=== PATIENT | male | born 1970 | race Caucasian/White ===

== ENCOUNTER 2017-01-10 13:24 | Outpatient (CLI) | payer MEDICARE, OTHER | END 2017-01-10 13:25 | disposition home or self-care (01) | DX: G47.33 Obstructive sleep apnea (adult) (pediatric) (principal) | CPT/HCPCS: 99214; G0463 ==

== ENCOUNTER 2017-08-09 11:12 | Outpatient (CLI) | payer MEDICARE, OTHER | END 2017-08-09 11:13 | disposition home or self-care (01) | LOC: SC 11:12 | PROVIDERS: ATTEND Nurse Practitioner Family | DX: G47.33 Obstructive sleep apnea (adult) (pediatric) (principal) | CPT/HCPCS: 99214; G0463; 99212 ==

== ENCOUNTER 2018-03-13 15:28 | Outpatient (CLI) | payer MEDICARE, OTHER | END 2018-03-13 15:29 | disposition home or self-care (01) | LOC: SC 15:28 | PROVIDERS: ATTEND Nurse Practitioner Family | DX: G47.33 Obstructive sleep apnea (adult) (pediatric) (principal) | CPT/HCPCS: 99214; G0463; 99212 ==

== ENCOUNTER 2018-06-15 13:41 | Outpatient (CLI) | payer MEDICARE, OTHER | END 2018-06-15 13:42 | disposition home or self-care (01) | LOC: SC 13:41 | PROVIDERS: ATTEND Nurse Practitioner Family | DX: G47.33 Obstructive sleep apnea (adult) (pediatric) (principal) | CPT/HCPCS: 99214; G0463; 99212 ==

== ENCOUNTER 2019-07-10 12:49 | Outpatient (CLI) | payer MEDICARE, OTHER ==
[2019-07-10 13:59] VITALS: BP 106/70
--- NOTE | 2019-07-10 13:59 | SLEEP CARE CONSULTATION ---
Information from patient questionnaire entered by Sasha Sahu. I have reviewed and concur with the information entered by Sasha Sahu. This document represents the service I personally performed and the decisions made by me, Mayte Esqueda, RN, MSN, [employer]. History of Present Illness Previous diagnosis: Mild, Obstructive Sleep Apnea-Hypopnea Syndrome AHI: 10.0 Reason for CPAP/BiPAP follow up: annual Equipment type: CPAP Equipment obtained from: [employer] Mask style: Nasal pillows Mask brand: Respironics Backup mask available: Yes Last cushion change: a week ago HPI additional information: He did not receive the 6 month follow up letter and realized it had been a while and contacted office for follow up. Continues to struggle with constant pain from his fibromyalgia which affects ablitly to get to sleep. He will sometimes not use CPAP until very sleepy after in bed so average use is about 4 - 6 hours with CPAP. His tossing and turning causes the mask seal to break. He has tried several masks and the Nuance nasal pillows fits the best. CPAP Compliance Data - Data Reviewed with Patient Average duration of nightly device use: 4.2 Compliance rate %: 52.8 (180 days) Current pressure setting (cmH2O): 8.5 Humidity settin Average residual AHI: 2.7 Subjective Missed days of use due to: reports: illness Patient concerns: reports: mask leak noise ( only if tossing and turning in sleep with CPAP. ), condensation in mask/hose (rare and adjusts humidity ), nasal congestion (from recent cold reduced use of CPAP.). denies: aerophagia, mask discomfort, air blowing in eyes, dry mouth, nose, throat, epistaxis Observed to snore while using device: No Current pressure setting perceived as: comfortable On therapy, patient: reports: sleeping better, being more awake and alert during the day, more rested overall (but residual fatigue from pain ). denies: awakening more refreshed, drowsiness while driving Initial [place] Sleepiness Scale score: 13 Current [place] Sleepiness Scale score: 10 Allergies and Home Medications Known drug allergies: Yes (synthroid , darvocet, codienes ) Allergy and home medication list: Ibuprofen 800mg tab one up to three times a day as needed - 3-4 times a week Omeprazole 20mg tab one up to three times a day as needed C-T4 140mcg/T(3) 27mcg daily Review of Systems Review of systems same as previous: No (except recent cold ) Physical Exam Blood Pressure: 106/70 Cuff size: long Heart Rate: 71 O2 Saturation: 98 Height: 6 ft 3 in Weight: 255 lb 12.8 oz (new anti inflamatory diet ) Weight change since last visit: lost 10 pounds Body Mass Index: 31.9 BMI Classification: Obesity Class 1 Impression and Plan 1. Obstructive Sleep Apnea-Hypopnea Syndrome, mild, with fair treatment compliance and good apnea control. On CPAP therapy, the patient has better sleep quality and is more rested overall but has residual fatigue. Patient feels his fatigue is from chronic pain from fibromyalgia that is managed by his tail board man. He feels he is actually sleeping longer this past year with CPAP except past month when ill with a cold. His compliance is the best it has been in years. Usual is 40% range and this past 6 months he has increased it to 52%. His chronic pain affects his use of CPAP. He will start sleep with CPAP until his tossing and turning is too much. Then he resumes CPAP when he feels he has settled down. He is encouraged to strive for a minimum of 6 hours of sleep for overall health and to reduce fatigue from insufficient sleep. Better sleep can also improve pain but this has been hard for patient to achieve consistently. He can try going to sleep about 10 minutes earlier a night to see if he can get more overall sleep over time. Mask style is the best tried so far. For nasal congestion, he was given a sample of saline nasal spray to use prior to CPAP. He is to set it by the CPAP if possible as a reminder. He can also increase the humidity setting to reduce nasal congestion. He already has a steamy shower before bed that can facilitate nasal drainage. The shower can also assist transition to sleep. Patient has lost 10 pounds with new diet plan from tail board man. He is hoping to lose about 15 more pounds. Current BMI is 31.8, class 1 obesity. As he loses weight his apnea risk and CPAP pressure may also reduce. Thus he was advised of symptoms to report discussed. Sometimes pressures are not needed to be changed 20- 30 pounds or more of weight loss. Patient's apnea severity and rationale for treatment to reduce apnea, improve sleep quality and reduce cardiovascular and cerebrovascular events was reviewed. I also reviewed the benefit of consistent device use of CPAP for his fibromyalgia if can get more sleep. Since his apnea is more severe in supine position, if unable to use CPAP, he is to avoid sleeping supine with pillow positioning. * Continue CPAP pressure at 8.5 cmH2O * Implement methods to reduce nasal congestion. * Strive for more sleep. * Notify me if snoring with mask or feeling that the pressure is too much or too little * Continue to lose weight * Return for follow up in 1 year, or sooner if concerns arise I spent 100% of this 40 minute visit face to face with the patient with greater than 50% of this was spent time counseling the patient and coordination of care.
== END 2019-07-10 12:50 | disposition home or self-care (01) ==
LOC: SC 12:49
PROVIDERS: ATTEND Nurse Practitioner Family
DX: G47.33 Obstructive sleep apnea (adult) (pediatric) (principal)
CPT/HCPCS: 99215; G0463; 99212

== ENCOUNTER 2020-07-02 12:50 | Outpatient (CLI) | payer MEDICARE, OTHER ==
--- NOTE | 2020-07-02 13:20 | SLEEP CARE CONSULTATION ---
Information from patient questionnaire entered by Sasha Sahu. I have reviewed and concur with the information entered by Sasha Sahu. This document represents the service I personally performed and the decisions made by , Margareth Weems ARNP. History of Present Illness Service Date and Time: 07/02/2020 1250 Previous diagnosis: Mild, Obstructive Sleep Apnea-Hypopnea Syndrome AHI: 10.0 (in 2008) Reason for follow up: annual (last seen 2019) Equipment type: CPAP Equipment obtained from: [employer] (Getting supplies as needed) Mask style: Nasal pillows Backup mask available: Yes (old mask) Last cushion change: 3 weeks ago Prior sleep studies: Yes Year and Where: 2008 - [facility] Type of Sleep Study: Polysomnography HPI additional information: SILVIANO BAHENA was diagnosed to have mild, AHI 10.0, obstructive sleep apnea- hypopnea syndrome and returned today for CPAP therapy annual follow-up. CPAP Compliance Data - Data Reviewed with Patient Average duration of nightly device use: 4.5 Compliance rate %: 60 Current pressure setting (cmH2O): 8.5 Humidity settin Average residual AHI: 3.3 Central apnea: 1.4 Obstructive apnea: 0.7 Average large leak: 0 Subjective Missed days of use due to: reports: other (has fibromyalgia, pain causes restless sleep and difficulty keeping mask on) Patient concerns: denies: aerophagia, mask discomfort, air blowing in eyes, mask leak noise, condensation in mask/hose, nasal congestion, dry mouth, nose, throat, epistaxis, other Observed to snore while using device: No (only if don't use CPAP) Current pressure setting perceived as: comfortable On therapy, patient: reports: sleeping better, awakening more refreshed, being more awake and alert during the day, more rested overall. denies: drowsiness while driving Initial [place] Sleepiness Scale score: 13 (in 2008) Current [place] Sleepiness Scale score: 8 Allergies and Home Medications Drug allergies reviewed: Yes (acetaminophen, levothyroxine, propoxyphene) Home medication list reviewed: Yes (no changes) Review of Systems Review of systems same as previous: Yes (no changes) Physical Exam Heart Rate: 58 O2 Saturation: 98 Height: 6 ft 3 in Weight: 264 lb Body Mass Index: 33.0 BMI Classification: Obese Impression and Plan 1. Obstructive Sleep Apnea-Hypopnea Syndrome, mild, with fair treatment compliance and good apnea control. On CPAP therapy, the patient has better sleep quality and is more rested overall. He has good apnea control. He does consistently wear the CPAP but due to his fibromyalgia will remove it when he is tossing/turning in his bed at night. I advised him to put mask on when doing quiet activity prior to bed like reading or watching TV to increase the time spent with the mask on. He voiced understanding and agreement. He is trying to lose weight by controlling his portions and "pushing away from the table" when he is full. He has lost about 8 pounds. He may follow up next year unless any concerns arise during the year. Patient's apnea severity and rationale for treatment to reduce apnea, improve sleep quality and reduce cardiovascular and cerebrovascular events was reviewed. I also reviewed the benefit of consistent device use of CPAP for his fibromyalgia. * Continue CPAP pressure at 8.5 cmH2O * Increase time on the machine * Notify me if snoring with mask or feeling that the pressure is too much or too little * Continue to try lose weight * Call this office if any problems using CPAP * Return for follow up in 1 year, or sooner if concerns arise Counseling Topics: Weight loss health impact Visit Type: In Office Time Spent with Patient (minutes): 17 Provider Statement: I spent 100% of the Face to Face Visit with the patient with greater than 50% spent counseling the patient and coordination of care.
== END 2020-07-02 12:51 | disposition home or self-care (01) ==
LOC: SC 12:50
PROVIDERS: ATTEND Nurse Practitioner Family
DX: G47.33 Obstructive sleep apnea (adult) (pediatric) (principal); E66.9 Obesity, unspecified; Z68.33 Body mass index [BMI] 33.0-33.9, adult
CPT/HCPCS: 99212; G0463

== ENCOUNTER 2021-07-29 13:41 | Outpatient (CLI) | payer MEDICARE, OTHER ==
[2021-07-29 14:28] VITALS: BP 124/68
--- NOTE | 2021-07-29 14:28 | SLEEP CARE CONSULTATION ---
Information from patient questionnaire entered by Licha Traore MA. I have reviewed and concur with the information entered by Licha Traore MA. This document represents the service I personally performed and the decisions made by , Margareth Weems ARNP. History of Present Illness Service Date and Time: 07/29/2021 1341 Previous diagnosis: Mild, Obstructive Sleep Apnea-Hypopnea Syndrome AHI: 10.0 (in 2008) Reason for follow up: annual, other (Due to lack of air) Equipment type: CPAP Equipment obtained from: [employer] (Getting supplies as needed) Mask style: Nasal pillows Backup mask available: Yes (old mask) Last cushion change: 15 days ago [facility] Type of Sleep Study: Polysomnography HPI additional information: SILVIANO BAHENA was diagnosed to have mild, AHI 10.0, obstructive sleep apnea-hyp opnea syndrome and returned today for CPAP therapy annual follow-up. Sleep Study - Results Type of Sleep Study: Polysomnography Prior sleep studies: Yes [facility] CPAP Compliance Data - Data Reviewed with Patient Average duration of nightly device use: 4 hours 10 minutes Compliance rate %: 50 Current pressure setting (cmH2O): 8.5 Humidity settin Average residual AHI: 2.3 Average large leak: 0 secs Subjective Patient concerns: reports: nasal congestion. denies: aerophagia, mask discomfort, air blowing in eyes, mask leak noise, condensation in mask/hose, dry mouth, nose, throat, epistaxis, other Observed to snore while using device: No Current pressure setting perceived as: too low On therapy, patient: reports: sleeping better, awakening more refreshed, being more awake and alert during the day, more rested overall. denies: drowsiness while driving Initial [place] Sleepiness Scale score: 13 (in 2008) Current [place] Sleepiness Scale score: 8 (2020) Allergies and Home Medications Known drug allergies: No Drug allergies reviewed: No Home medication list reviewed: No Physical Exam Vital signs obtained and entered by: Paula Traore CMA Blood Pressure: 124/68 (left) Cuff size: wrist Heart Rate: 68 O2 Saturation: 98 (with Mask) Height: 6 ft 3 in Weight: 271 lb (without boots) Body Mass Index: 33.8 BMI Classification: Obese Impression and Plan 1. Obstructive Sleep Apnea-Hypopnea Syndrome, mild, with fair treatment compliance and good apnea control. On CPAP therapy, the patient has better sleep quality and is more rested overall. Patient states he tries to wear his CPAP mask as long as he can. He has fibromyalgia and it causes him to move a lot at night due to pain. He does wear his mask every night, but he does not always make it to 4 hours. He is satisfied with current CPAP therapy but feels the pressure may be a little low. He wakes up with some nasal congestion with one of his nostrils closed with congestion. He uses nasal saline spray but states it always just runs out of his nose. I advised him to try an [id number] nasal steroid spray like fluticasone which may help with the congestion. He voiced understanding. I will adjust his pressure up a little for patient comfort to 9 cmH2O. Patient has a RemStar Pro 60 series by [employer]. Patient has already registered their device for the recall. Patient denies any black particles seen in machine or hoses, any unusual odors coming from device. Patient has not experienced any physical symptoms such as upper airway irritatio n, headache, skin or eye irritation, asthma, nausea/vomiting, difficulty breathing or chest pain. If patient is not able to sleep due to waking up choking, gasping for air or other respiratory distress that they may decide to continue using it until it is either replaced or repaired. Since the patients current machine is at least 5 years old the patient is opting to update their device with a device that is not on the recall. Patient voiced understanding and agreement with plan. Patient's apnea severity and rationale for treatment to reduce apnea, improve sleep quality and reduce cardiovascular and cerebrovascular events was reviewed. I also reviewed the benefit of consistent device use of CPAP for fibromyalgia. Patient was encouraged to lose weight for their overall health and to reduce apneas. * Updates device * Update supplies as needed * Change auto CPAP pressure to 9 cmH2O * Notify me if snoring with mask or feeling that the pressure is too much or too little * Attempt to lose weight * Call this office if any problems using CPAP * Return for follow up one month after he obtains new device, or sooner if concerns arise Counseling Topics: Spare mask, Weight loss health impact Visit Type: In Office Time Spent with Patient (minutes): 22 Provider Statement: I spent 100% of the Face to Face Visit with the patient with greater than 50% spent counseling the patient and coordination of care.
== END 2021-07-29 13:42 | disposition home or self-care (01) ==
LOC: SC 13:41
PROVIDERS: ATTEND Nurse Practitioner Family
DX: G47.33 Obstructive sleep apnea (adult) (pediatric) (principal); E66.9 Obesity, unspecified; Z68.33 Body mass index [BMI] 33.0-33.9, adult
CPT/HCPCS: 99213; G0463; 99212

== ENCOUNTER 2023-07-08 15:45 | Outpatient (CLI) | payer MEDICARE, OTHER ==
[2023-07-08 21:06] LABS: THYROID STIMULATING HORMONE 10.01 uIU/mL (0.34-5.60)
[2023-07-12 14:08] LABS: THYROGLOBULIN ANTIBODY 9.8 IU/mL (0.0-0.9)
== END 2023-07-08 16:00 | disposition home or self-care (01) ==
LOC: LAB.N 15:45
PROVIDERS: ATTEND Family Medicine
DX: E06.9 Thyroiditis, unspecified (principal)
CPT/HCPCS: 36415; 84439; 84443; 84481; 86376; 86800

== ENCOUNTER 2023-08-30 16:42 | Emergency (ER) | payer MEDICARE, OTHER ==
--- NOTE | 2023-08-30 17:26 | ED Physician Documentation ---
History of Present Illness - Stated complaint Stated Complaint: HYPERTENSION - Chief complaint Chief Complaint: General - History obtained from History obtained from: Patient, Family - History of Present Illness Timing: Today Pain level max: 0 Pain level now: 0 - Additonal information Additional information: 53-year-old male presents to the emergency department complaining of hypertension. He states blood pressure 150/100 at home. He has been feeling "total body pressure" for the past 3 days intermittently. No significant chest pain. No shortness of breath. Has a history of Amy's. They are titrating his thyroid medication he has had some palpitations since November of this year. He is not currently feeling the palpitations. He occasionally feels "flushed". No diarrhea or constipation. No numbness or tingling. Currently is asymptomatic. 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 Review of Systems Constitutional: denies: Fever, Chills Ears: denies: Ear pain Nose: denies: Rhinorrhea / runny nose, Congestion Cardiac: reports: Palpitations (None currently). denies: Chest pain / pressure Respiratory: denies: Dyspnea, Cough GI: denies: Nausea, Vomiting, Diarrhea : denies: Dysuria Skin: denies: Rash Musculoskeletal: denies: Neck pain, Back pain Neurologic: denies: Headache PD PAST MEDICAL HISTORY - Past Medical History Past Medical History: Yes Endocrine/Autoimmune: HyPOthyroidism Psych: Other Musculoskeletal: Other - Present Medications Home Medications: Ambulatory Orders Medication Instructions Recorded Confirmed Bromfenac Sodium 1 drops OP BID 08/30/23 08/30/23 Loteprednol Etabonate 1 drops OP QID 08/30/23 08/30/23 Thyroid,Pork [Glentana Thyroid] 60 mg ORAL DAILY 08/30/23 08/30/23 - Allergies Allergies/Adverse Reactions: Allergies Allergy/AdvReac Type Severity Reaction Status Date / Time acetaminophen Allergy Edema Verified 06/09/16 19:33 [From Darvocet-N] levothyroxine sodium Allergy Unknown Verified 06/09/16 19:33 [From Levoxyl] propoxyphene napsylate * Allergy Edema Verified 06/09/16 19:33 [From Darvocet-N] - Social History Does the pt smoke?: No Smoking Status: Never smoker - Immunizations Immunizations are current?: Yes PD ED PE NORMAL - Vitals Vital signs reviewed: Yes - General General: Alert and oriented X 3, No acute distress, Well developed/nourished - HEENT HEENT: Atraumatic, PERRL, EOMI, Moist mucous membranes - Neck Neck: Supple, no meningeal sign - Cardiac Cardiac: RRR, Strong equal pulses - Respiratory Respiratory: No respiratory distress, Clear bilaterally - Abdomen Abdomen: Soft, Non tender, Non distended - Derm Derm: Warm and dry - Extremities Extremities: No edema, No calf tenderness / cord - Neuro Neuro: Alert and oriented X 3, cook morning 2-12 intact, No motor deficit, No sensory deficit, Normal speech Eye Opening: Spontaneous Motor: Obeys Commands Verbal: Oriented GCS Score: 15 - Psych Psych: Normal mood, Normal affect Results - Vitals Vitals: Vital Signs - 24 hr 08/30/23 08/30/23 16:46 17:33 Temperature 36.6 C Heart Rate 60 64 Respiratory 18 12 Rate Blood Pressure 142/97 H 150/100 H O2 Saturation 98 100 Oxygen O2 Source Room air - EKG (time done) 1717 EKG releavant findings:: EKG personally interpreted by author of this note. Relevant findings are: Rate: Rate (enter#) (55) Rhythm: NSR [place]: Normal Intervals: Normal [place] QRS: Normal Ischemia: Normal ST segments - Labs Labs: Laboratory Tests 08/30/23 08/30/23 17:27 17:27 WBC 7.8 RBC 5.44 Hgb 15.5 Hct 45.4 MCV 83.5 MCH 28.5 MCHC 34.1 RDW 12.8 Plt Count 185 MPV 9.5 Neut # (Auto) 5.0 Lymph # (Auto) 2.0 [place] # (Auto) 0.6 Eos # (Auto) 0.1 Baso # (Auto) 0.0 Absolute Nucleated RBC 0.00 Nucleated RBC % 0.0 Sodium 136 Potassium 3.6 Chloride 103 Carbon Dioxide 27 Anion Gap 6.0 BUN 12 Creatinine 0.9 Estimated GFR (MDRD) 89 Glucose 93 Calcium 9.3 Total Bilirubin 1.1 H AST 27 ALT 44 Alkaline Phosphatase 47 Troponin I High Sens 2.7 Total Protein 6.5 Albumin 4.4 Globulin 2.1 Albumin/Globulin Ratio 2.1 Lipase < 10 L - Rads (name of study) cxr Relevant Findings:: Final report received, See rad report PD Medical Decision Making - ED course Complexity details: reviewed results, re-evaluated patient, considered different ial (No ST elevation MA, no aortic dissection, no PE, no tension pneumothorax, no aortic aneurysm), d/w patient ED course: 53-year-old male with fairly asymptomatic hypertension. Occasional total body "pressure". No significant chest pain or shortness of breath. No acute findings on laboratory testing, EKG or chest x-ray. Blood pressure decreased on its own here. No evidence of stroke. No headaches. No focal neurological deficits. Will have him follow-up with his PCP for further care of his hypertension. Patient counseled regarding signs and symptoms for which I believe and urgent re-evaluation would be necessary. Patient with good understanding of and agreement to plan and is comfortable going home at this time This document was made in part using voice recognition software. While efforts are made to proofread this document, sound alike and grammatical errors may occur. Departure - Departure Disposition: 01 Home, Self Care Clinical Impression: Hypertension Qualifiers: Hypertension type: unspecified Qualified Code(s): I10 - Essential (primary) hypertension Condition: Good Instructions: ED Hypertension Poss Follow-Up: your,doctor in 1 week [Other] Comments: Please follow-up with your doctor for further care. Your laboratory testing does not show any acute abnormalities today. As we discussed your blood pressure will fluctuate throughout the day. Please keep a log and discuss with your primary care provider starting any blood pressure medications. Forms: PCP List Discharge Date/Time: 08/30/23 18:15
[2023-08-30 17:35] LABS: BASOPHILS % (AUTO) 0.4 %; EOSINOPHILS # (AUTO) 0.1 10^3/uL (0.0-0.7); EOSINOPHILS % (AUTO) 1.4 %; HCT - HEMATOCRIT 45.4 % (42.0-52.0); HGB - HEMOGLOBIN 15.5 g/dL (14.0-18.0); LYMPHOCYTES % (AUTO) 25.5 %; MEAN CORPUSCULAR HEMOGLOBIN 28.5 pg (27.0-31.0); MEAN CORPUSCULAR HGB CONC 34.1 g/dL (32.0-36.0); MEAN CORPUSCULAR VOLUME 83.5 fL (80.0-94.0); MEAN PLATELET VOLUME 9.5 fL (7.4-11.4); MONOCYTES # (AUTO) 0.6 10^3/uL (0.0-1.0); MONOCYTES % (AUTO) 7.3 %; PLT - PLATELET COUNT 185 10^3/uL (130-450); RED BLOOD COUNT 5.44 10^6/uL (4.70-6.10); RED CELL DISTRIBUTION WIDTH 12.8 % (12.0-15.0); WHITE BLOOD COUNT 7.8 x10^3/uL (4.8-10.8)
[2023-08-30 17:38] VITALS: BP 150/100; O2SAT 100
--- NOTE | 2023-08-30 17:42 | XRAY Report ---
PROCEDURE: Chest 1 View X-Ray INDICATIONS: Chest Pain TECHNIQUE: One view of the chest was acquired. COMPARISON: None. FINDINGS: Surgical changes and devices: None. Lungs and pleura: No pleural effusions or pneumothorax. Lungs are clear. Mediastinum: Mediastinal contours appear normal. Heart size is normal. Bones and chest wall: No suspicious bony lesions. Overlying soft tissues appear unremarkable. IMPRESSION: No acute cardiopulmonary process. Reviewed by: Rody Larry MD on 08/30/2023 5:40 PM [facility] [[email or web address]] Approved by: Rody Larry MD on 08/30/2023 5:40 PM [facility] [[email or web address]] Station ID: [id number]
[2023-08-30 17:55] LABS: ALBUMIN 4.4 g/dL (3.2-5.5); ALBUMIN/GLOBULIN RATIO 2.1 (1.0-2.2); ALKALINE PHOSPHATASE 47 IU/L (42-121); ALT ALANINE AMINOTRANSFERASE 44 IU/L (10-60); AST ASPARTATE AMINOTRANSFERASE 27 IU/L (10-42); BILIRUBIN,TOTAL 1.1 mg/dL (0.2-1.0); BUN - BLOOD UREA NITROGEN 12 mg/dL (6-20); CALCIUM 9.3 mg/dL (8.5-10.3); CARBON DIOXIDE - CO2 27 mmol/L (21-32); CHLORIDE 103 mmol/L (101-111); CREATININE 0.9 mg/dL (0.6-1.3); GFR - MDRD 89 (>89); GLUCOSE 93 mg/dL (74-104); POTASSIUM 3.6 mmol/L (3.5-4.5); SODIUM 136 mmol/L (135-145); TOTAL PROTEIN 6.5 g/dL (6.4-8.9)
[2023-08-30 17:56] LABS: LIPASE < 10 U/L (11-82)
[2023-08-30 17:59] LABS: TROPONIN I HIGH SENSITIVITY 2.7 ng/L (2.3-19.7)
== END 2023-08-30 18:15 | disposition home or self-care (01) ==
LOC: ED 16:42
DX: I10 Essential (primary) hypertension (principal)
CPT/HCPCS: 36415; 80053; 83690; 84484; 85025; 93005; 99283; 99284

== ENCOUNTER 2024-02-13 00:40 | Emergency (ER) | payer MEDICARE, OTHER ==
[2024-02-13] MEDS: ONDANSETRON ODT 4 MG TABLET TL STA (02:51)
[2024-02-13] MEDS: KETOROLAC 60 MG/2 ML VIAL IM STA (02:55)
[2024-02-13] MEDS: HYDROmorphone 1 MG/ML CARPUJECT IM STA (02:55)
[2024-02-13] MEDS: acetaZOLAMIDE 250 MG TABLET PO STA (03:08)
[2024-02-13] MEDS ORDERED: PROMETHAZINE 25 MG/1 ML VIAL ONE (03:42)
[2024-02-13] MEDS: PROMETHAZINE INJ 25 MG in SODIUM CHLORIDE 0.9% 50 ML IV STA (03:43)
--- NOTE | 2024-02-13 03:45 | ED Physician Documentation ---
PD DAPHNE HEENT - Stated complaint Stated Complaint: POST OP R EYE PX/NAUSEA - Chief complaint Chief Complaint: Heent - History obtained from History obtained from: Patient, Family - Additional information Additional information: The patient comes to the emergency department chief complaint of right eye pain and headache that started this afternoon. He states that he had a retinal reattachment surgery on the of this month down at the [facility] in [place]. Dr. Azeb Kirk was his surgeon. The patient states that things have been going just fine since the surgery, though he does still have some oil in his eye which has made his vision somewhat indistinct. He states that he had seen Dr. Kirk in follow-up and that the next follow-up is not for another month. The patient states that he has had to lay on his stomach facedown or on his left side but is not to lay on his back. He states he has not been doing this. He states that this afternoon, he looked to the left side and felt a sudden pain in his right eye. He states that the pain just seem to get worse and worse and that now he is nauseated. He states the vision is not really any different now than it has been. The patient's states that he has had chronically elevated intraocular pressures ever since having a cataract surgery about 5 months ago. His baseline has been in the low 30s and his quality lab assoc put him on drops to try to bring his pressures down, but has not seem to have been helping. When the symptoms started this afternoon, they called the quality lab assoc who told the patient to take some extra of his drops that he is on. However, still did not seem to relieve anything so they called the quality lab assoc back and they told the patient's to come here and get Diamox. PD PAST MEDICAL HISTORY - Past Medical History Past Medical History: Yes Endocrine/Autoimmune: HyPOthyroidism Psych: Other Musculoskeletal: Other - Past Surgical History Past Surgical History: Yes HEENT: Detached retina repair - Present Medications Home Medications: Ambulatory Orders Medication Instructions Recorded Confirmed Bromfenac Sodium 1 drops OP BID 08/30/23 08/30/23 Loteprednol Etabonate 1 drops OP QID 08/30/23 02/13/24 Thyroid,Pork [Henderson Thyroid] 60 mg ORAL DAILY 08/30/23 02/13/24 Brinzolamide/Brimonidine Tart 1 drops RIGHTEYE TID 02/13/24 02/13/24 [Simbrinza 1%-0.2% Eye Drop] HYDROcod/ACETAM 5/325 [Aline 5/325] 1 - 2 tablet PO Q6H PRN #20 tablet 02/13/24 Ondansetron Odt [Zofran] 4 mg TL Q6H PRN #20 tablet 02/13/24 Timolol 0.5% Ophth Drops [Timoptic 1 drops RIGHTEYE Q4HR 02/13/24 02/13/24 0.5% Ophth Drops] Tobramycin [Tobrex] 1 drops RIGHTEYE Q4HR 02/13/24 02/13/24 acetaZOLAMIDE [Diamox] 250 mg PO QID #20 tablet 02/13/24 - Allergies Allergies/Adverse Reactions: Allergies Allergy/AdvReac Type Severity Reaction Status Date / Time acetaminophen Allergy Edema Verified 02/13/24 01:38 [From Darvocet-N] levothyroxine sodium Allergy Unknown Verified 02/13/24 01:38 [From Levoxyl] propoxyphene napsylate * Allergy Edema Verified 02/13/24 01:38 [From Darvocet-N] - Social History Does the pt smoke?: No Smoking Status: Never smoker Does the pt drink ETOH?: No Does the pt have substance abuse?: No - Immunizations Immunizations are current?: Yes - POLST Patient has POLST: No PD ED PE NORMAL - Vitals Vital signs reviewed: Yes - General General: Well developed/nourished, Other (Alert, appears very uncomfortable, lying on his left side with eyes closed in a dark room, moaning) - HEENT HEENT: Atraumatic, PERRL, EOMI, Moist mucous membranes, Other (Injected right eye, negative fluorescein exam. Tonometry 37/10 taps.) - Neck Neck: Supple, no meningeal sign - Respiratory Respiratory: No respiratory distress - Derm Derm: Normal color, Warm and dry, No rash - Extremities Extremities: No deformity - Neuro Neuro: Other (Alert, grossly intact) - Psych Psych: Normal mood, Normal affect Results - Vitals Vitals: Oxygen O2 Source Room air PD Medical Decision Making - ED course Complexity details: considered differential, d/w patient, d/w family, d/w leasing sales consultant (Dr. Rubin, [facility]) ED course: The patient was treated symptomatically with Dilaudid, Toradol, Zofran, and Phenergan. The patient's reported that the quality lab assoc had requested acetazolamide and so this was also administered. The patient was found to be feeling quite a bit better, but he did have elevated eye pressures at 37, which was a little higher than his reported baseline in the low 30s. I spoke with Dr. Rubin, the on-call quality lab assoc for [facility], and she stated that she would like the patient to be on the oral acetazolamide. She stated that her office would be getting in touch with the patient to schedule an appointment for him to come in. She stated he could continue on his normal eyedrops and that at this point, they would have to determine the best course of action for the patient's eye. I went and discussed all of this with the patient and his , who are agreeable. The patient was feeling better and wished to go home. I have given him a Vicodin prepack from here and prescriptions for symptomatic management. I have also given a prescription for Diamox. The patient is discharged with his . We have discussed the usual indications for return. 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 Your case was discussed with Dr. Rubin of the [facility] and she said that she would like you to also be on Diamox 4 times a day. You have been given your first dose here. She says that the clinic in [place] will call you to set up an appointment to come in and get a formal pressure reading done there. In the meantime, prescription for medication for nausea and pain, as well as your Diamox, have been electronically transmitted to the [facility] pharmacy in [place]. Please pick your medications up this morning and continue taking them. Forms: PCP List Discharge Date/Time: 02/13/24 03:45
[2024-02-13] MEDS: PROMETHAZINE 25 MG/1 ML VIAL IM STA (04:03)
[2024-02-13] MEDS: HYDROcod/ACET 5/325 Prepack 4 PO STA (04:31)
[2024-02-13] MEDS: ONDANSETRON ODT 4 MG Prepack 2 TL PRN (04:31)
[2024-02-13 04:54] VITALS: BP 139/90; O2SAT 96
== END 2024-02-13 03:45 | disposition home or self-care (01) ==
LOC: ED 00:40
DX: H40.051 Ocular hypertension, right eye (principal)
CPT/HCPCS: 96372; 96374; 99284; A9270; J1170; J7040; Q0162